=== PATIENT | male | born 1990 | race Caucasian/White ===

== ENCOUNTER 2021-01-29 18:47 | Emergency (ER) | payer SELFPAY ==
[2021-01-29 19:44] LABS: Absolute Lymphocytes (CBC) 2.1 K/uL (0.7-4.9); Basophils % 0.7 % (0-1.3); Hematocrit 43.8 % (39.6-49.0); Lymphocytes % 22.6 % (15.3-44.8); MPV 11.2 fL (7.6-11.3); RBC Red Blood Cell Count 5.31 M/uL (4.33-5.43)
[2021-01-29 19:47] LABS: Urine Blood Negative (Negative); Urine Glucose Negative (Negative); Urine Protein Trace (Negative); Urine Specific Gravity >=1.030 (1.005-1.030)
[2021-01-29 19:56] LABS: Barbiturates NEGATIVE (NEGATIVE); Benzodiazepines NEGATIVE (NEGATIVE); Cocaine NEGATIVE (NEGATIVE); METHAMPHETAM NEGATIVE (NEGATIVE); Methadone NEGATIVE (NEGATIVE); Opiates NEGATIVE (NEGATIVE); Phencyclidine NEGATIVE (NEGATIVE); THC Cannibis NEGATIVE (NEGATIVE)
[2021-01-29 20:07] LABS: Albumin 3.9 g/dL (3.4-5.0); Bilirubin Direct 0.1 mg/dL (0-0.2); Bilirubin Total 0.5 mg/dL (0.2-1.0); Potassium 3.7 mmol/L (3.5-5.1); Protein, Total 7.4 g/dL (6.4-8.2); Thyroid Stimulating Hormone 2.26 uIU/mL (0.360-3.740)
[2021-01-29 20:15] LABS: Blood Morphology Comment NOT SEEN (NOT SEEN); Platelet Estimate ADEQ; White Blood Cell Scan OK (OK)
--- NOTE | 2021-01-29 20:38 | RAD REPORT ---
EXAM DESCRIPTION: CT - Abdomen Pelvis W Contrast - 01/29/2021 8:27 pm CLINICAL HISTORY: Abdominal pain COMPARISON: none. TECHNIQUE: Computed axial tomography of the abdomen pelvis was obtained. 100 cc Isovue-300 was admin istered intravenously. Oral contrast was not requested which limits evaluation of bowel. All CT scans are performed using dose optimization technique as appropriate and may include automated exposure control or mA/KV adjustment according to patient size. FINDINGS: The liver, spleen, pancreas, adrenal and kidneys appear unremarkable. There is no evidence of diverticulitis. Normal appendix Mild posterior subluxation L4 on L5. Mild anterior subluxation of L5 on S1. Spondylolysis L5 IMPRESSION: No acute abnormality is displayed.
[2021-01-29] MEDS ORDERED: NA CHLORIDE 0.9% 1,000 ML ONE (21:00)
--- NOTE | 2021-01-29 21:39 | ER ---
Nurse's Notes [facility] Name: Gurpreet Kang III Age: 31 yrs Sex: Male : 1990 Arrival Date: 01/29/2021 Time: 18:48 Bed 18 Private MD: Diagnosis: Back Contusion;Generalized Fatigue Presentation: 01/29 18:55 Chief complaint: "I have no energy and my right arm pit has been sweating a lot." Also hb c/o low back pain after fall 2 weeks ago. Coronavirus screen: At this time, the client does not indicate any symptoms associated with coronavirus-19. Ebola Screen: No symptoms or risks identified at this time. Initial Sepsis Screen: Does the patient meet any 2 criteria? No. Patient's initial sepsis screen is negative. Does the patient have a suspected source of infection? No. Patient's initial sepsis screen is negative. Risk Assessment: Do you want to hurt yourself or someone else? Patient reports no desire to harm self or others. Onset of symptoms was January 29, 2021. 18:55 Method Of Arrival: Ambulatory hb 18:55 Acuity: JONATAN 3 hb Historical: - Allergies: 18:56 No Known Allergies; hb - Immunization history:: Adult Immunizations up to date. - Social history:: Smoking status: Patient reports the use of cigarette tobacco products, smokes one-half pack cigarettes per day. Screenin:21 Abuse screen: Denies threats or abuse. Denies injuries from another. Nutritional jm8 screening: No deficits noted. Tuberculosis screening: No symptoms or risk factors identified. Fall Risk None identified. Assessment: 19:47 General: Appears in no apparent distress. comfortable, Behavior is calm, cooperative, jm8 appropriate for age. Pain: Denies pain. Neuro: No deficits noted. Neuro: Level of Consciousness is awake, alert, obeys commands, Oriented to person, place, time. Cardiovascular: No deficits noted. Respiratory: No deficits noted. Airway is patent Trachea midline Respiratory effort is even, unlabored. GI: No deficits noted. : No deficits noted. EENT: No deficits noted. Derm: Reports increased sweating on the right side for over a month. Musculoskeletal: Reports fall 2 days ago with mild back pain. 20:53 Reassessment: Patient appears in no apparent distress at this time. Patient and/or jm8 family updated on plan of care and expected duration. Pain level reassessed. Patient is alert, oriented x 3, equal unlabored respirations, skin warm/dry/pink. Vital Signs: 18:55 BP 137 / 87; Pulse 68; Resp 16; Temp 98.9; Pulse Ox 100% on R/A; Pain 2/10; hb 21:49 BP 132 / 84; Pulse 64; Resp 16; Pulse Ox 99% on R/A; 8 ED Course: 18:48 Patient arrived in ED. am2 18:56 Triage completed. hb 18:56 Arm band placed on. hb 18:58 Patient placed in an exam room, on a stretcher. ll1 18:59 Michael Anne MD is Attending Physician. [facility] 19:21 Patient has correct armband on for positive identification. Bed in low position. Call [facility] light in reach. Side rails up X 1. 19:41 UDS Sent. jm8 19:41 TSH Sent. jm8 19:42 LFT's Sent. 8 19:42 Basic Metabolic Panel Sent. jm8 19:42 CBC with Diff Sent. jm8 19:49 Inserted saline lock: 18 gauge in right antecubital area, using aseptic technique. jm8 20:47 CT Abd/Pelvis - IV Contrast Only Sent. jm8 21:50 IV discontinued, intact, bleeding controlled, No redness/swelling at site. jm8 21:50 No provider procedures requiring assistance completed. jm8 22:19 CT In Process Unspecified. EDMS Administered Medications: Discontinued: NS 0.9% 1000 ml IV at 1000 ml once 20:42 Drug: NS 0.9% 1000 ml Route: IV; Rate: 1000 ml; Site: right antecubital; Rudy Outcome: 21:38 Discharge ordered by . Alisa 21:50 Discharged to home ambulatory. 8 21:50 Condition: good 21:50 Discharge instructions given to patient, Instructed on discharge instructions, follow up and referral plans. Demonstrated understanding of instructions, follow-up care. 21:51 Patient left the ED. mairanna Signatures: Dispatcher [employer] EDMS Lela Narvaez RN RN Ginny Adams am2 Ange Tristan RN RN [facility] Michael Anne MD MD [facility] Mook Neville RN RN Rudy
--- NOTE | 2021-01-29 21:39 | EDPHYS ---
Physician Documentation [facility] Name: Gurpreet Kang III Age: 31 yrs Sex: Male : 1990 Arrival Date: 01/29/2021 Time: 18:48 Bed 18 Private MD: ED Physician Michael Anne HPI: 01/29 19:31 This 31 yrs old Male presents to ER via Ambulatory with complaints of sweats, mh7 Doesn't Feel Right. 19:31 The patient presents with pain and an injury. The symptoms are located in the right mh7 flank. Onset: The symptoms/episode began/occurred 2 day(s) ago. The pain does not radiate. Associated signs and symptoms: Pertinent negatives: abdominal pain, chest pain, constipation, dysuria, fever, headache, hematuria, incontinence, nausea, numbness, tingling, urinary retention, vomiting, weakness, generalized fatigue and more sweating under right arm pit for about a month. The problem was sustained during a fall, while walking, slipped and fell hitting right flank area on a metal pipe. Modifying factors: The patient symptoms are alleviated by OTC meds, NSAID, the patient symptoms are aggravated by movement. Severity of symptoms: At their worst the symptoms were moderate, 2 day(s) ago, in the emergency department the symptoms have improved, moderately. Historical: - Allergies: 18:56 No Known Allergies; hb - Immunization history:: Adult Immunizations up to date. - Social history:: Smoking status: Patient reports the use of cigarette tobacco products, smokes one-half pack cigarettes per day. ROS: 19:31 Constitutional: Negative for fever, chills, and weight loss, Eyes: Negative for injury, mh7 pain, redness, and discharge, ENT: Negative for injury, pain, and discharge, Neck: Negative for injury, pain, and swelling, Cardiovascular: Negative for chest pain, palpitations, and edema, Respiratory: Negative for shortness of breath, cough, wheezing, and pleuritic chest pain, Abdomen/GI: Negative for abdominal pain, nausea, vomiting, diarrhea, and constipation, : Negative for injury, bleeding, discharge, and swelling, MS/Extremity: Negative for injury and deformity, Skin: Negative for injury, rash, and discoloration, Neuro: Negative for headache, weakness, numbness, tingling, and seizure, Psych: Negative for depression, anxiety, suicide ideation, homicidal ideation, and hallucinations, Allergy/Immunology: Negative for hives, rash, and allergies, Endocrine: Negative for neck swelling, polydipsia, polyuria, polyphagia, and marked weight changes, Hematologic/Lymphatic: Negative for swollen nodes, abnormal bleeding, and unusual bruising. Exam: 19:31 Constitutional: This is a well developed, well nourished patient who is awake, alert, mh7 and in no acute distress. Head/Face: Normocephalic, atraumatic. Eyes: Pupils equal round and reactive to light, extra-ocular motions intact. Lids and lashes normal. Conjunctiva and sclera are non-icteric and not injected. Cornea within normal limits. Periorbital areas with no swelling, redness, or edema. Neck: Trachea midline, no thyromegaly or masses palpated, and no cervical lymphadenopathy. Supple, full range of motion without nuchal rigidity, or vertebral point tenderness. No Meningismus. Chest/axilla: Normal chest wall appearance and motion. Nontender with no deformity. No lesions are appreciated. Cardiovascular: Regular rate and rhythm with a normal S1 and S2. No gallops, murmurs, or rubs. Normal PMI, no JVD. No pulse deficits. Respiratory: Lungs have equal breath sounds bilaterally, clear to auscultation and percussion. No rales, rhonchi or wheezes noted. No increased work of breathing, no retractions or nasal flaring. Abdomen/GI: Soft, non-tender, with normal bowel sounds. No distension or tympany. No guarding or rebound. No evidence of tenderness throughout. Skin: Warm, dry with normal turgor. Normal color with no rashes, no lesions, and no evidence of cellulitis. MS/ Extremity: Pulses equal, no cyanosis. Neurovascular intact. Full, normal range of motion. Neuro: Awake and alert, GCS 15, oriented to person, place, time, and situation. Cranial nerves II-XII grossly intact. Motor strength 5/5 in all extremities. Sensory grossly intact. Cerebellar exam normal. Normal gait. Psych: Awake, alert, with orientation to person, place and time. Behavior, mood, and affect are within normal limits. Vital Signs: 18:55 BP 137 / 87; Pulse 68; Resp 16; Temp 98.9; Pulse Ox 100% on R/A; Pain 2/10; hb 21:49 BP 132 / 84; Pulse 64; Resp 16; Pulse Ox 99% on R/A; jm8 MDM: 21:36 Differential diagnosis: arthritis, Cholelithiasis Fatigue Osteoarthritis Pyelonephritis [facility] sprain, Ureterolithiasis. Data reviewed: vital signs, nurses notes, lab test result(s), CBC, electrolytes, urinalysis, EKG, radiologic studies, CT scan. Data interpreted: Pulse oximetry: on room air is 100 %. Interpretation: normal. Counseling: I had a detailed discussion with the patient and/or guardian regarding: the historical points, exam findings, and any diagnostic results supporting the discharge/admit diagnosis, the presence of at least one elevated blood pressure reading (>120/80) during this emergency department visit, lab results, radiology results, the need for outpatient follow up, to return to the emergency department if symptoms worsen or persist or if there are any questions or concerns that arise at home. Response to treatment: the patient's symptoms have markedly improved after treatment. 21:38 Patient medically screened. [facility] 01/29 19:13 Order name: CBC with Diff [facility] 01/29 19:13 Order name: Basic Metabolic Panel [facility] 01/29 19:13 Order name: LFT's [facility] 01/29 19:13 Order name: TSH [facility] 01/29 19:13 Order name: UDS [facility] 01/29 19:48 Order name: Urine Dipstick-Ancillary [facility] 01/29 19:46 Order name: CT Abd/Pelvis - IV Contrast Only; Complete Time: 21:19 [facility] 01/29 19:52 Order name: CBC with Automated Diff [facility] 01/29 19:56 Order name: Urine Drug Screen [facility] 01/29 20:07 Order name: Basic Metabolic Panel [facility] 01/29 20:07 Order name: Liver (Hepatic) Function [facility] 01/29 20:07 Order name: Thyroid Stimulating Hormone [facility] 01/29 20:15 Order name: CBC Smear Scan; Complete Time: 20:23 [facility] 01/29 20:39 Order name: CT [facility] 01/29 19:13 Order name: Urine Dipstick-Ancillary (obtain specimen); Complete Time: 20:46 [facility] 01/29 19:13 Order name: EKG - Nurse/Tech; Complete Time: 19:41 [facility] Administered Medications: Discontinued: NS 0.9% 1000 ml IV at 1000 ml once 20:42 Drug: NS 0.9% 1000 ml Route: IV; Rate: 1000 ml; Site: right antecubital; jm8 Disposition: 01/29/21 21:38 Discharged to Home. Impression: Back Contusion, Generalized Fatigue. - Condition is Stable. - Discharge Instructions: Fatigue, Contusion, [id number], Back Pain, Adult, [id number]. - Medication Reconciliation Form, Thank You Letter, Antibiotic Education, Prescription Opioid Use, Work release form form. - Follow up: Private Physician; When: 1 - 2 days; Reason: Worsening of condition, Recheck today's complaints, Continuance of care, Re-evaluation by your physician. - Problem is new. - Symptoms have improved. Signatures: Dispatcher [employer] EDMS Lela Narvaez RN RN Michael Anne MD MD mh7 Mook Neville RN RN jm8 Corrections: (The following items were deleted from the chart) 21:51 21:38 01/29/2021 21:38 Discharged to Home. Impression: Back Contusion; Generalized jm8 Fatigue. Condition is Stable. Forms are Medication Reconciliation Form, Thank You Letter, Antibiotic Education, Prescription Opioid Use. Follow up: Private Physician; When: 1 - 2 days; Reason: Worsening of condition, Recheck today's complaints, Continuance of care, Re-evaluation by your physician. Problem is new. Symptoms have improved. [facility]
[2021-01-29 21:58] VITALS: TEMP 98.9
[2021-01-29 21:59] VITALS: BP 132/84; O2SAT 99
--- NOTE | 2021-02-01 09:24 | EKG ---
Test Date: 2021-01-29 Test Time: 19:35:59 Land Surveying Manager: JACY MEASUREMENT RESULTS: Intervals: Rate: 86 OH: 132 QRSD: 94 QT: 354 QTc: 423 Ozone: P: 76 OH: 132 QRS: -3 T: 28 INTERPRETIVE STATEMENTS: Normal sinus rhythm Normal ECG No previous ECG available for comparison Electronically Signed On 02-01-21 09:17:51 CDT by Amari Moore
== END 2021-01-29 21:51 | disposition home or self-care (01) ==
LOC: ER 18:47
DX: S30.0XXA Contusion of lower back and pelvis, initial encounter (principal); R53.83 Other fatigue; F17.210 Nicotine dependence, cigarettes, uncomplicated; W01.198A Fall on same level from slipping, tripping and stumbling with subsequent striking against other object, initial encounter
CPT/HCPCS: 36415; 74177; 80048; 80076; 80307; 81003; 84443; 85025; 93005; 99284; J7030; Q9967

== ENCOUNTER 2021-03-06 09:01 | Emergency (ER) | payer SELFPAY ==
[2021-03-06 09:44] LABS: Urine Blood Negative (Negative); Urine Glucose Negative (Negative); Urine Protein Negative (Negative)
[2021-03-06 09:54] LABS: Absolute Lymphocytes (CBC) 0.9 K/uL (0.7-4.9); Basophils % 0.3 % (0-1.3); Hematocrit 44.6 % (39.6-49.0); Lymphocytes % 10.6 % (15.3-44.8); MPV 10.9 fL (7.6-11.3); RBC Red Blood Cell Count 5.39 M/uL (4.33-5.43)
[2021-03-06 10:05] LABS: ALT/SGPT 50 U/L (12-78); AST/SGOT 19 U/L (15-37); Albumin 3.8 g/dL (3.4-5.0); Alkaline Phosphatase 124 U/L (45-117); BUN Blood Urea Nitrogen 12 mg/dL (7-18); Bicarbonate 29 mmol/L (21-32); Creatine Phosphokinase 129 U/L (39-308); Glucose Level 107 mg/dL (74-106); Potassium 3.7 mmol/L (3.5-5.1); Protein, Total 7.4 g/dL (6.4-8.2); Sodium Level 135 mmol/L (136-145); Troponin (Emerg Dept Use Only) < 0.02 ng/mL (0.0-0.045)
[2021-03-06 10:12] LABS: Barbiturates NEGATIVE (NEGATIVE); Benzodiazepines NEGATIVE (NEGATIVE); Cocaine NEGATIVE (NEGATIVE); METHAMPHETAM POSITIVE (NEGATIVE); Methadone NEGATIVE (NEGATIVE); Opiates NEGATIVE (NEGATIVE); Phencyclidine NEGATIVE (NEGATIVE); THC Cannibis NEGATIVE (NEGATIVE)
[2021-03-06] MEDS ORDERED: NA CHLORIDE 0.9% 1,000 ML ONE (10:22)
--- NOTE | 2021-03-06 10:52 | RAD REPORT ---
EXAM DESCRIPTION: CT - Head Brain Wo Cont - 03/06/2021 10:43 am CLINICAL HISTORY: DIZZINESS , drowsiness COMPARISON: No comparisons TECHNIQUE: All CT scans are performed using dose optimization technique as appropriate and may inclu de automated exposure control or mA/KV adjustment according to patient size. FINDINGS: No intracranial hemorrhage, hydrocephalus or extra-axial fluid collection.Subtle areas of diminished density is seen basal ganglia.No areas of brain edema or evidence of midline shift. The paranasal sinuses and mastoids are clear. The calvarium is intact. IMPRESSION: No acute intracranial abnormality. Small subcentimeter foci diminished density in both basal ganglia are seen. This can be related subac brandon or chronic infarcts. Follow-up nonemergent MRI brain assessment would recommended.
--- NOTE | 2021-03-06 11:23 | ER ---
Nurse's Notes [facility] Name: Gurpreet Kang III Age: 31 yrs Sex: Male : 1990 Arrival Date: 03/06/2021 Time: 09:04 Bed 18 Private MD: Diagnosis: Other stimulant abuse-methamphetamine abuse Presentation: 03/06 09:25 Chief complaint: Patient states: "I did two hours of yard work this morning, and I feel ss like I got too hot. I started getting really cool and clammy and I was sweating a lot. On the way up here I started feeling better.". Coronavirus screen: Client denies travel out of the [place] in the last 14 days. Ebola Screen: Patient denies exposure to infectious person. Patient denies travel to an Ebola-affected area in the 21 days before illness onset. Initial Sepsis Screen: Does the patient meet any 2 criteria? No. Patient's initial sepsis screen is negative. Does the patient have a suspected source of infection? No. Patient's initial sepsis screen is negative. Risk Assessment: Do you want to hurt yourself or someone else? Patient reports no desire to harm self or others. Onset of symptoms was March 06, 2021. 09:25 Method Of Arrival: Ambulatory ss 09:25 Acuity: JONATAN 3 ss 09:25 Note Pt admits to using Meth last night. ss Triage Assessment: 09:49 General: Behavior is calm, cooperative, appropriate for age. tr6 Historical: - Allergies: 09:27 No Known Allergies; ss - Home Meds: 09:27 None [Active]; ss - PMHx: 09:27 None; ss - Immunization history:: Adult Immunizations up to date. - Social history:: Smoking status: Patient denies any tobacco usage or history of. Screenin:48 Abuse screen: Denies threats or abuse. Denies injuries from another. Nutritional tr6 screening: No deficits noted. Tuberculosis screening: No symptoms or risk factors identified. Fall Risk None identified. Assessment: 09:47 General: Appears in no apparent distress. Reports feeling ill for pt states he was tr6 "working on my car all night and had to do work this morning so I was with my nataliia who is a drug addict and to help give me some energy he gave me some ice and i started to feel real funny and overheated.". Pain: Denies pain. Neuro: No deficits noted. Cardiovascular: No deficits noted. Respiratory: No deficits noted. GI: No deficits noted. : No deficits noted. EENT: No deficits noted. Derm: No deficits noted. Musculoskeletal: No deficits noted. Vital Signs: 09:25 BP 157 / 94; Pulse 109; Resp 16; Temp 98.5(O); Pulse Ox 100% on R/A; Weight 122.47 kg; ss Height 5 ft. 9 in. (175.26 cm); Pain 0/10; 10:00 BP 134 / 79; Pulse 85; Resp 18; Pulse Ox 100% on R/A; tr6 09:25 Body Mass Index 39.87 (122.47 kg, 175.26 cm) ss Vitals: 10:00 Cardiac Rhythm Assessment Regular Sinus rhythm. tr6 ED Course: 09:04 Patient arrived in ED. mr 09:06 Kain Irwin, LISSY is PHCP. pm1 09:06 Lv Jones MD is Attending Physician. pm1 09:26 Triage completed. ss 09:27 Arm band placed on right wrist. ss 09:29 Chelle Dominguez, JACY is Primary Nurse. tr6 09:46 Inserted saline lock: 18 gauge in right antecubital area, using aseptic technique. tr6 Blood collected. 09:48 Patient has correct armband on for positive identification. Bed in low position. Call tr6 light in reach. Side rails up X2. teletypesetter monitor on. Pulse ox on. NIBP on. 09:48 No provider procedures requiring assistance completed. tr6 10:00 Chest Single View XRAY In Process Unspecified. EDMS 10:44 CT Head Brain wo Cont In Process Unspecified. EDMS 11:27 IV discontinued, intact, bleeding controlled, No redness/swelling at site. Pressure tr6 dressing applied. Administered Medications: 09:49 Drug: NS 0.9% 1000 ml Route: IV; Rate: 1000 ml; Site: right antecubital; tr6 11:28 Follow up: Response: No adverse reaction; IV Status: Completed infusion; IV Intake: tr6 1000ml Intake: 11:28 IV: 1000ml; Total: 1000ml. tr6 Outcome: 11:23 Discharge ordered by . pm1 11:27 Discharged to home ambulatory. tr6 11:27 Condition: good 11:27 Discharge instructions given to patient, Instructed on discharge instructions, follow up and referral plans. safety practices, Demonstrated understanding of instructions, follow-up care. 12:35 Patient left the ED. ss Signatures: Dispatcher [employer] ANH DasilvaThu oliveira Shelby, RN RN ss Kain Irwin, LISSY LASER ENGRAVER pm1 Chelle Dominguez RN RN tr6
--- NOTE | 2021-03-06 11:24 | EDPHYS ---
Physician Documentation [facility] Name: Gurpreet Kang III Age: 31 yrs Sex: Male : 1990 Arrival Date: 03/06/2021 Time: 09:04 Bed 18 Private MD: ED Physician Lv Jones HPI: 03/06 09:25 This 31 yrs old Male presents to ER via Ambulatory with complaints of Heat pm1 Exposure. 09:25 Patient reports feeling dizziness this AM that resolved with drinking water after pm1 working on the yard this AM for 2 hours. Onset: The symptoms/episode began/occurred this morning. Severity of symptoms: in the emergency department the symptoms have improved Pain is currently a 0 / 10. The patient has not recently seen a physician. Historical: - Allergies: : No Known Allergies; ss - Home Meds: : None [Active]; ss - PMHx: :27 None; ss - Immunization history:: Adult Immunizations up to date. - Social history:: Smoking status: Patient denies any tobacco usage or history of. ROS: 09:25 Constitutional: Negative for fever, chills, and weight loss, Eyes: Negative for injury, pm1 pain, redness, and discharge, ENT: Negative for injury, pain, and discharge, Neck: Negative for injury, pain, and swelling, Cardiovascular: Negative for chest pain, palpitations, and edema, Respiratory: Negative for shortness of breath, cough, wheezing, and pleuritic chest pain. 09:25 Abdomen/GI: Negative for abdominal pain, nausea, vomiting, diarrhea, and constipation, Back: Negative for injury and pain, MS/Extremity: Negative for injury and deformity, Skin: Negative for injury, rash, and discoloration. 09:25 Neuro: Positive for dizziness, Negative for headache, numbness, syncope, near syncope, tingling, weakness. Exam: 09:25 Constitutional: This is a well developed, well nourished patient who is awake, alert, pm1 and in no acute distress. Head/Face: Normocephalic, atraumatic. Eyes: Pupils equal round and reactive to light, extra-ocular motions intact. Lids and lashes normal. Conjunctiva and sclera are non-icteric and not injected. Cornea within normal limits. Periorbital areas with no swelling, redness, or edema. 09:25 Skin: Warm, dry with normal turgor. Normal color with no rashes, no lesions, and no evidence of cellulitis. MS/ Extremity: Pulses equal, no cyanosis. Neurovascular intact. Full, normal range of motion. 09:25 ENT: Mouth: Lips: normal, Oral mucosa: normal, pink and intact, moist. 09:25 Cardiovascular: Rate: normal, Rhythm: regular, Pulses: no pulse deficits are appreciated, Heart sounds: normal, normal S1and S2, Edema: is not appreciated. 09:25 Respiratory: Exam negative for acute changes, respiratory distress, shortness of breath, Breath sounds: are clear throughout. 09:25 Abdomen/GI: Inspection: abdomen appears normal, Palpation: abdomen is soft and non-tender, in all quadrants. 09:25 Neuro: Exam negative for acute changes, Orientation: is normal, Mentation: is normal, Motor: is normal, moves all fours, Gait: is steady, at a normal pace, without difficulty. Vital Signs: 09:25 BP 157 / 94; Pulse 109; Resp 16; Temp 98.5(O); Pulse Ox 100% on R/A; Weight 122.47 kg; ss Height 5 ft. 9 in. (175.26 cm); Pain 0/10; 10:00 BP 134 / 79; Pulse 85; Resp 18; Pulse Ox 100% on R/A; tr6 09:25 Body Mass Index 39.87 (122.47 kg, 175.26 cm) ss MDM: 09:17 Patient medically screened. emre 09:37 ED course: Informed by the nurse that the patient reported use of drugs last night. pm1 Patient used "ice". 10:07 Data reviewed: vital signs. Data interpreted: Pulse oximetry: on room air is 100 %. pm1 Interpretation: normal. 11:21 Counseling: I had a detailed discussion with the patient and/or guardian regarding: the pm1 historical points, exam findings, and any diagnostic results supporting the discharge/admit diagnosis, lab results, radiology results, the need for outpatient follow up, a family practitioner, a neurologist, to return to the emergency department if symptoms worsen or persist or if there are any questions or concerns that arise at home, Follow up nonemergent MRI of brain as recommended by radiologist. 03/06 09:24 Order name: CBC with Diff; Complete Time: 10:13 pm1 03/06 09:24 Order name: CMP; Complete Time: 10:13 pm1 03/06 09:24 Order name: CPK; Complete Time: 10:13 pm1 03/06 09:24 Order name: Troponin (emerg Dept Use Only); Complete Time: 10:13 pm1 03/06 09:37 Order name: Urine Drug Screen pm1 03/06 09:37 Order name: Urine Drug Screen; Complete Time: 10:13 EDMS 03/06 09:24 Order name: EKG; Complete Time: 09:25 pm1 03/06 09:24 Order name: EKG - Nurse/Tech; Complete Time: 10:11 pm1 03/06 09:24 Order name: Urine Dipstick-Ancillary (obtain specimen); Complete Time: 09:46 pm1 03/06 09:24 Order name: IV Saline Lock; Complete Time: 09:46 pm03/06 09:39 Order name: Chest Single View XRAY; Complete Time: 11:46 pm03/06 09:39 Order name: CT Head Brain wo Cont; Complete Time: 11:17 pm03/06 09:44 Order name: Urine Dipstick-Ancillary; Complete Time: 10:13 EDMS Administered Medications: 09:49 Drug: NS 0.9% 1000 ml Route: IV; Rate: 1000 ml; Site: right antecubital; tr6 11:28 Follow up: Response: No adverse reaction; IV Status: Completed infusion; IV Intake: tr6 1000ml Disposition: 03/06/21 11:23 Discharged to Home. Impression: Other stimulant abuse - methamphetamine abuse. - Condition is Stable. - Discharge Instructions: Stimulant Use Disorder-Methamphetamines. - Medication Reconciliation Form, Thank You Letter, Antibiotic Education, Prescription Opioid Use form. - Follow up: Emergency Department; When: As needed; Reason: Worsening of condition. Follow up: Private Physician; When: 2 - 3 days; Reason: Recheck today's complaints, Continuance of care, Re-evaluation by your physician. - Problem is new. - Symptoms have improved. Addendum: 03/09/2021 07:34 Co-signature as Attending Physician, Lv Jones MD I agree with the assessment and c barillas plan of care. Signatures: Dispatcher [employer] Lv Aguilar MD MD cha Smirch, Shelby, RN RN ss Kain Irwin TRIM INSTALLER TRIM INSTALLER pm1 Chelle Dominguez, RN RN tr6 Corrections: (The following items were deleted from the chart) 03/06 12:35 11:23 03/06/2021 11:23 Discharged to Home. Impression: Other stimulant abuse - ss methamphetamine abuse. Condition is Stable. Forms are Medication Reconciliation Form, Thank You Letter, Antibiotic Education, Prescription Opioid Use. Follow up: Emergency Department; When: As needed; Reason: Worsening of condition. Follow up: Private Physician; When: 2 - 3 days; Reason: Recheck today's complaints, Continuance of care, Re-evaluation by your physician. Problem is new. Symptoms have improved. pm1
--- NOTE | 2021-03-06 11:45 | RAD REPORT ---
EXAM DESCRIPTION: RAD - Chest Single View - 03/06/2021 10:00 am CLINICAL HISTORY: dizziness Chest pain. COMPARISON: No comparisons FINDINGS: Portable technique limits examination quality. The lungs are grossly clear. The heart is normal in size. No displaced fractures. IMPRESSION: No acute intrathoracic process suspected.
[2021-03-06 12:42] VITALS: TEMP 98.5; O2SAT 100
[2021-03-06 12:44] VITALS: BP 134/79
== END 2021-03-06 12:35 | disposition home or self-care (01) ==
LOC: ER 09:01
DX: F15.10 Other stimulant abuse, uncomplicated (principal)
CPT/HCPCS: 36415; 70450; 71045; 80053; 80307; 81003; 82550; 84484; 85025; 93005; 96360; 96361; 99284; J7030